=== PATIENT | female | born 1955 | race Two or more races ===

== ENCOUNTER 2024-12-31 07:50 | Emergency (ER) | payer OTHER ==
[~2024-12-31] VITALS: Ht 154.9 cm; Wt 70.5 kg
[~2024-12-31 07:50] MED LIST: ALPR0.5T PO; OME20GT PO; PHENERGAN
--- NOTE | 2024-12-31 08:29 | ED.PDOC ---
GI ASSESSMENT Chief Complaint: Abdominal Pain Time Seen by MD: 08:40 Reviewed Notes: Nurses Notes, Medications, Allergies Information Source: Patient Mode of Arrival: EMS Timing: Days Duration: Since onset Prehospital treatment: None Quality: None Vomitus: None Stool: Normal Severity: Moderate Recent: None Recent Hx of: None Pain Location: Epigastric Modifying Factors: Nothing Associated sign and symptoms: Abdominal Pain Past Medical History PAST MEDICAL HISTORY: Denies Surgical History: Denies all surgeries PIZZA BAKER History: Denies all PIZZA BAKER Hx Family History Family History: Unknown Social History Smoker: Non-Smoker Alcohol: Denies ETOH Use Drugs: Denies Drug Use Lives In: Home Gastrointestinal: reports: abdominal pain All Other Systems: Reviewed and Negative ( PER HPI) Physical Exam General Appearance: No Apparent Distress, Normal HEENT: Normal ENT Inspection, Pharynx Normal Neck: Full Range of Motion, Non-Tender, Normal, Normal Inspection Respiratory: Chest Non-Tender, Lungs Clear, No Accessory Muscle Use, No Respiratory Distress, Normal Breath Sounds Cardiovascular: No Edema, No Murmur, No Gallop, Normal Peripheral Pulses, Regular Rate/Rhythm Breast Exam: Deferred Gastrointestinal: No Organomegaly, Non Tender, No Pulsatile Mass, Normal Bowel Sounds, Soft Genitalia: Deferred Pelvic: Deferred Rectal: Deferred Extremities: No calf tenderness, Normal capillary refill, Normal inspection, Normal range of motion, Non-tender, No pedal edema Musculoskeletal : Apperance: Normal Neurologic: Alert, cloth colors examiner II-XII nml as Tested, No Motor Deficits, Normal Affect, Normal Mood, No Sensory Deficits Cerebellar Function: Normal Reflexes: Normal Skin: Dry, Normal Color, Warm Lymphatic: No Adenopathy Was a procedure done? Was a procedure done?: No GI differential Dx Differential Diagnosis: Gastritis/PUD, Gastroenteritis, Electrolyte Imbalance, Food Poisoning, Bacterial, Viral X-Ray, Labs, Meds, VS Vital Signs Date Time Temp Pulse Resp B/P (MAP) Pulse Ox O2 Delivery O2 Flow Rate FiO2 12/31/24 08:42 82 16 97 Room Air* 0 21 12/31/24 08:42 97.6 82 18 148/70 (96) 97 97.6 Time of 1ST Reevaluation: 09:20 Reevaluation 1ST: Unchanged Patient Education/Counseling: Diagnosis, Treatment Family Education/Counseling: No Family Present Departure 1 Departure Time of Disposition: 10:40 Critical Care Note Critical Care Time?: No Stability Stability form required: No Heart Score Heart Score: Heart Score Response (Comments) Value History N/A 0 EKG N/A 0 Age N/A 0 Risk Factors N/A 0 Troponin N/A 0 Total 0 I personally scribed for RUCHI DAVIDSON MD ([email or web address]) on 12/31/24 at 08:29. Electronically submitted by Naz Moya ([email or web address]). I personally scribed for RUCHI DAVIDSON MD ([email or web address]) on 12/31/24 at 08:57. Electronically submitted by Naz Moya ([email or web address]). RUCHI DAVIDSON MD Dec 31, 2024 08:29
[2024-12-31 08:42] VITALS: BP 148/70; PULSE 82; RESP 16; TEMP 97.6; O2SAT 97
== END 2024-12-31 08:45 | disposition left against medical advice (07) ==
LOC: MERGE 07:50 → ER 07:50 → EDBD 07:50 → ER 08:45
DX: R10.13 Epigastric pain (principal); Z53.21 Procedure and treatment not carried out due to patient leaving prior to being seen by health care provider